=== PATIENT | male | born 1960 ===

== ENCOUNTER 2021-06-09 07:29 | Emergency (ER) | payer MEDICAID ==
[~2021-06-09] VITALS: Ht 167.6 cm; Wt 108.0 kg
[2021-06-09] MEDS ORDERED: HYDR1TAB94 PO (08:15)
== END 2021-06-09 08:37 | disposition home or self-care (01) ==
LOC: ER 07:29
DX: M25.562 Pain in left knee (principal); Z76.0 Encounter for issue of repeat prescription; Z59.00 Homelessness unspecified; Z86.73 Personal history of transient ischemic attack (TIA), and cerebral infarction without residual deficits
CPT/HCPCS: 99283; A9270